=== PATIENT | female | born 1965 | race Caucasian/White ===

== ENCOUNTER 2018-09-02 08:35 | Emergency (ER) | payer SELFPAY ==
[2018-09-02] MEDS: KETOROLAC 15 MG INJ IM (08:59)
[2018-09-02] MEDS ORDERED: HYDROmorphONE 0.5 MG/0.5 ML SYG IV (10:02)
== END 2018-09-02 10:25 | disposition home or self-care (01) ==
LOC: E/R 08:35
DX: S52.501A Unspecified fracture of the lower end of right radius, initial encounter for closed fracture (principal); E11.9 Type 2 diabetes mellitus without complications; S52.611A Displaced fracture of right ulna styloid process, initial encounter for closed fracture; V09.29XA Pedestrian injured in traffic accident involving other motor vehicles, initial encounter
CPT/HCPCS: 29125; 73030-RT; 73110-RT; 73510; 96372; 99284-25